=== PATIENT | female | born 1980 | race Caucasian/White ===

== ENCOUNTER 2024-02-22 07:50 | Emergency (ER) | payer OTHER, SELFPAY ==
[2024-02-22 07:57] VITALS: BP 116/84
--- NOTE | 2024-02-22 09:34 | ED.GENMED ---
History of Present Illness
General
Chief Complaint: Musculo-Skeletal Complaint
Source: patient
Exam Limitations: none
Time Seen by Provider: 02/22/24 09:04
Nursing documentation reviewed up to this point in time: agreed with
Travel History
Have you had any contact with someone who has COVID-19?: No
Do you have any symptoms of coronavirus? Fever > 100 degrees, chills, cough, shortness of breath, sore throat, loss of taste or smell, muscle aches, or headache?: No
History of Present Illness
History of Present Illness:
43-year-old female with no medical problems presents for 2 to 3 days of atraumatic right shoulder pain. Patient says that she felt a little bit when she was sitting at her computer 2 days ago but was still able to move it. Yesterday when she woke
up it felt more stiff and painful to move. She was still able to do her activities but was limiting her movement of her right shoulder. She is right-hand dominant. Today when she woke up the pain is more severe and she has very limited painful
range of motion. It is not swollen or red, she has no fever or chills, there is no radiating pain down her arm, there is no numbness tingling or weakness in the arm. She is not having any chest discomfort or shortness of breath. It is not
pleuritic. She has no neck pain. Patient tried applying Salley balm on the shoulder without relief of pain. She has never had any shoulder problems before. She denies repetitive lifting or using weights
Past History
Past History
ED Past Medical History: None
ED Past Surgical History: None
Social History
Tobacco: Non-smoker
Alcohol: None
Drug: None
Personal:
Living: with family
Review of Systems
Review of Systems
Allergies reviewed?: Yes
All Other Systems: Not applicable
Phy Exam
Physical Exam
Physical Exam:
GENERAL: Alert , in no apparent distress, comfortable at rest
HEAD: NCAT
neck: no midline tendneress, no trapezius tenderness, full rom of the neck
CV: regular, no edema
lungs: clear, no resp distress
NEUROLOGICAL: Alert and oriented, no focal neuro deficits, , 5/5 strength, sensation intact,
SKIN: Warm and dry, no redness/warm
MUSCULOSKELETAL: Normal inspection of the right shoulder, no swelling appreciated, patient has no tenderness to the clavicle or scapula but she does have some tenderness to the anterior aspect of her proximal humerus along the humeral head. She has
very limited painful range of motion but is able to touch the opposite shoulder. Most pain comes with abduction and rotation externally. Was unable to perform a drop arm test, patient was too uncomfortable. She has no distal swelling, no
tenderness, normal neurovascular exam
PSYCH: Normal and appropriate interaction.
Course
Orders/Labs/Results
Orders:
Orders
02/22/24 08:00
Shoulder, Right 2 Views [CR Shoulder - Right Min 2 View] Urgent
Comment:
Reason For Exam: pain
02/22/24 09:46
Hydrocodone 5/APAP 325 [[place] 5/325] 1 tablet PO NOW STA
Ibuprofen [Motrin] 600 mg PO NOW STA
Vital Signs
Initial and Last Documented VS:
Initial Vital Signs
Temp Pulse Resp BP Pulse Ox
98.3 F 88 20 116/84 100
02/22/24 07:57 02/22/24 07:57 02/22/24 07:57 02/22/24 07:57 02/22/24 07:57
Last Documented Vital Signs
Temp Pulse Resp BP Pulse Ox
98.3 F 88 20 116/84 100
02/22/24 07:57 02/22/24 07:57 02/22/24 07:57 02/22/24 07:57 02/22/24 07:57
MDM/Problems Addressed
Differential Diagnosis Includes:
bursitis, rottator cuff tendintiis, calcific tendinitis
MDM/Problems Addressed:
43 y/o F R hand dominant
here with atraumatic right shoulder pain x 3 days progressive, limiting her ROM
has not tried any meds
no fever/chills, numbness/tingling/weakness
no neck pain
cnanot think of repetitive lifting injury
examines loike burisitis or calfici tendinitis
no swellign, no redness, able to touch opposite shoulder pain with abduction and extension and rotation
no neck tenderness
nv intact
xray indep reviewed by me no findigns.
ortho f/u
ice/heat
nsaids
1 dose vicodin here
return precautions,.
*Critical Care Note
Total Time (30-74mins, 75-104mins- exclusive of procedures): Not Applicable
ED Attending Note
-
Portions of this chart may have been created with voice recognition software.� Occasional wrong word or��sound alike� substitutions may have occurred due to the inherent limitations of voice recognition software.
Discharge Plan
Departure
Patient Disposition: Home (Routine Discharge)
Date of Disposition: 02/22/24
Time of Disposition: 09:48
Patient with high blood pressure during this ER visit?: No
Condition: Fair
Covid-19: Not Applicable
Discharge Problem:
Acute pain of right shoulder
Instructions: Shoulder Pain (DC)
Prescriptions:
New
naproxen 500 mg tablet
500 mg PO BID 7 Days Qty: 14 0RF
Referrals:
Rupert Blankenship MD [Active] - Follow up in 5-7 days
(ortho
)
Ole Barrett DO [Family Provider] - Follow up in 2-3 days
Stand Alone Forms: Return to Work
Activity Restrictions/Additional Instructions:
We are not entirely sure the cause of your shoulder pain. You could have a bursitis or tendinitis. You should rest, ice and alternate with heat off-and-on, gently stretch a couple times a day, take naproxen 500 mg with food twice a day for 5 to 7
days starting tonight. You can take Tylenol 3 times a day. Follow-up with orthopedics for continued symptoms. You can also apply lidocaine patches when you are not icing it.
Return for fever, redness to the skin, numbness tingling or weakness in the arms or legs or concerns.
Interventions
Interventions:
*Risk Screen - Suicide Last Done: 02/22/24 07:57
*General Assessment Last Done: 02/22/24 07:57
*Neglect/Abuse Screening Last Done: 02/22/24 07:57
ED-Musculoskeletal Assessment Last Done: 02/22/24 09:19
[2024-02-22] MEDS: NORCO 5/325 1 TABLET PO (09:56)
[2024-02-22] MEDS: MOTRIN 600 MG PO (09:56)
== END 2024-02-22 10:08 | disposition home or self-care (01) ==
LOC: EMR 07:50
PROVIDERS: EMERGENCY PHYSICIAN Emergency Medicine; FAMILY PHYSICIAN Family Medicine
DX: M25.511 Pain in right shoulder (principal)
CPT/HCPCS: 99283; 73030

== ENCOUNTER 2024-08-14 22:42 | Observation (INO) | payer OTHER, SELFPAY ==
[2024-08-14] VITALS (7 sets, daily range): BP systolic 101–113; BP diastolic 64–80; BMI 24.3; BMI 23.7
[2024-08-14 17:26] LABS: % Basophils 1.1 % (0-2); % Eosinophils 2.5 % (0-6); % Immature Granulocytes 0.2 % (0-0.5); % Lymphocytes 32.1 % (20.5-51.1); % Monocytes 8.6 % (1.7-9.3); % Neutrophils 55.5 % (42.2-75.2); Absolute Basophils 0.1 10^3/uL (0-0.2); Absolute Eosinophils 0.1 10^3/uL (0-0.7); Absolute Lymphocytes 1.8 10^3/uL (1.2-3.4); Absolute Monocytes 0.5 10^3/uL (0.1-0.6); Absolute Neutrophils 3.2 10^3/uL (1.4-6.5); Hemoglobin 14.1 g/dL (12.0-16.0); Mean Corp Hgb Conc. 35.3 g/dL (33.0-37.0); Mean Corpuscular Hgb 31.8 pg (27.0-31.0); Mean Corpuscular Volume 90.3 fL (81.0-99.0); Mean Platelet Volume 9.6 fL (7.4-10.4); Nucleated Red Blood Cells % 0 %; Platelet Count 194 10^3/uL (130-400); Red Blood Cell Count 4.43 10^6/uL (4.20-5.40); Red Cell Dist. Width 11.7 % (11.5-14.5); White Blood Cell Count 5.7 10^3/uL (4.8-10.8)
[2024-08-14 17:35] LABS: APTT 24.8 Sec (23.4-35.0)
[2024-08-14 18:28] LABS: ALT (SGPT) 23 U/L (0-35); AST (SGOT) 30 U/L (14-36); Albumin 4.6 g/dl (3.5-5.0); Alkaline Phosphatase 49 U/L (38-126); Blood Urea Nitrogen 14 mg/dl (7-17); Calcium 10.1 mg/dl (8.4-10.2); Carbon Dioxide 26 mmol/L (22-30); Chloride 104 mmol/L (98-107); Glucose 124 mg/dl (70-99); Potassium 4.5 mmol/L (3.5-5.1); Sodium 140 mmol/L (135-145); Total Bilirubin 0.5 mg/dl (0.2-1.3); Total Protein 6.9 g/dl (6.3-8.2); eGFR > 60.00
--- NOTE | 2024-08-14 18:50 | ED.GENMED ---
History of Present Illness
<Robert Stanford PA-C - Last Filed: 08/14/24 21:17>
General
Chief Complaint: Dizziness
Source: patient
Exam Limitations: none
Time Seen by Provider: 08/14/24 18:03
History of Present Illness
History of Present Illness:
44-year-old female presents with 3 to 4 days worth of pressure and in the front of her head that radiates in a bandlike distribution with associated dizziness and confusion. She states she has been mixing her words up at times and she has been
stumbling. She describes at times the dizziness feels lightheaded however she also feels a woozy sensation if she turns her head or rolls over in bed. No recent fever congestion runny nose. Denies any unilateral numbness or weakness. No
abdominal pain chest pain of breath. Of note, patient started esterase 2 weeks ago. She states she tried to get . She recently increased her dose about 2 days prior to the onset of the symptoms currently. She stopped the medicine then 3
days ago however her symptoms have not improved.
Past History
<Robert Stanford PA-C - Last Filed: 08/14/24 21:17>
Past History
ED Past Medical History: None
ED Past Surgical History: None
Social History
Tobacco: Non-smoker
Alcohol: None
Drug: None
Personal:
Living: with family
Phy Exam
<Robert Stanford PA-C - Last Filed: 08/14/24 21:17>
Physical Exam
Physical Exam:
General: Well-appearing female no acute respiratory distress HEENT: Normocephalic atraumatic pupils equal round reactive to light no nystagmus TMs normal mucosa moist neck is supple
Heart: Regular rate and rhythm no murmurs lungs: Clear no wheeze
Neurologic exam: Alert and oriented no droop finger-nose intact [place] does reproduce dizziness more so to the right than the left there is no slurred speech no ataxia noted no dysarthria
Skin is warm no rash
Extremities: No cyanosis or edema
Course
<Robert Stanford PA-C - Last Filed: 08/14/24 21:17>
Orders/Labs/Results
Orders:
Orders
08/14/24 14:15
Monotest Urgent
Comment: ADD ON
08/14/24 17:07
CT Head W/o Iv Contrast Urgent
Comment:
Reason For Exam: speech issues
08/14/24 17:15
Complete Blood Count/With Diff Urgent
Comprehensive Metabolic Panel Urgent
PTT Urgent
08/14/24 19:29
CT Angio Head W/Wo Iv Contrast [CT Head Angio W/wo Iv Contrast] Urgent
Comment:
Reason For Exam: headache, dizzy, please do venogram
08/14/24 22:00
Flush (0.9% Sodium Chloride) [Flush (Nss)] See Dose Instructions IV PER PROTOCOL
Abnormal Lab Results
08/14/24
17:15
MCH 31.8 H pg
(27.0-31.0)
Glucose 124 H mg/dl
(70-99)
08/14/24 17:15
08/14/24 17:15
Vital Signs
Initial and Last Documented VS:
Initial Vital Signs
Temp Pulse Resp BP Pulse Ox
98.6 F 82 18 112/80 99
08/14/24 17:01 08/14/24 17:01 08/14/24 17:01 08/14/24 17:01 08/14/24 17:01
Last Documented Vital Signs
Temp Pulse Resp BP Pulse Ox
98.7 F 57 20 109/70 97
08/14/24 21:25 08/14/24 21:45 08/14/24 21:45 08/14/24 21:25 08/14/24 21:45
<Joseph Tsang MD - Last Filed: 08/14/24 21:58>
Orders/Labs/Results
Orders:
Orders
08/14/24 14:15
Monotest Urgent
Comment: ADD ON
08/14/24 17:07
CT Head W/o Iv Contrast Urgent
Comment:
Reason For Exam: speech issues
08/14/24 17:15
Complete Blood Count/With Diff Urgent
Comprehensive Metabolic Panel Urgent
PTT Urgent
08/14/24 19:29
CT Angio Head W/Wo Iv Contrast [CT Head Angio W/wo Iv Contrast] Urgent
Comment:
Reason For Exam: headache, dizzy, please do venogram
08/14/24 22:00
Flush (0.9% Sodium Chloride) [Flush (Nss)] See Dose Instructions IV PER PROTOCOL
Abnormal Lab Results
08/14/24
17:15
MCH 31.8 H pg
(27.0-31.0)
Glucose 124 H mg/dl
(70-99)
08/14/24 17:15
08/14/24 17:15
Vital Signs
Initial and Last Documented VS:
Initial Vital Signs
Temp Pulse Resp BP Pulse Ox
98.6 F 82 18 112/80 99
08/14/24 17:01 08/14/24 17:01 08/14/24 17:01 08/14/24 17:01 08/14/24 17:01
Last Documented Vital Signs
Temp Pulse Resp BP Pulse Ox
98.7 F 57 20 109/70 97
08/14/24 21:25 08/14/24 21:45 08/14/24 21:45 08/14/24 21:25 08/14/24 21:45
<Robert Stanford PA-C - Last Filed: 08/14/24 21:17>
MDM/Problems Addressed
Differential Diagnosis Includes:
Dizziness confusion head pressure. This started after recent initiation of esterase. No objective findings on exam to suggest unilateral deficit or CVA. Patient does seem to have some qualities of vertigo with [place] more so to the right.
Question viral illness or electrolyte abnormality. Offered COVID test however patient declined at the moment. Labs pending CT pending
<Robert Stanford PA-C - Last Filed: 08/14/24 21:17>
*Critical Care Note
Total Time (30-74mins, 75-104mins- exclusive of procedures): Not Applicable
<Robert Stanford PA-C - Last Filed: 08/14/24 21:17>
Update Note
Update Note:
Initial CT negative. Discussed with emergency room attending saw the patient as well and spoke with neurology. Neurology recommended CTV of the head this was performed and was negative. Patient still not back to baseline does not feel herself
having trouble with words and balance. There was recent increase dose of estrogen. Given this concern for possible TIA versus CVA. Will admit to hospital.
ED Attending Note
<Robert Stanford PA-C - Last Filed: 08/14/24 21:17>
-
Portions of this chart may have been created with voice recognition software.� Occasional wrong word or��sound alike� substitutions may have occurred due to the inherent limitations of voice recognition software.
<Joseph Tsang MD - Last Filed: 08/14/24 21:58>
ED Attending Note
Patient seen and examined by attending physician: Yes
I performed the substantive portion of visit, reviewed & personally made and approve the management plan that is documented in note by myself or NAVIN.: Yes
ED Attending Note:
44-year-old female higher doses of estrogen for issues. About 3 days ago patient started noticing neurologic symptoms including some difficulty with her speech. Missing words. Cognitive issues. Slight balance issues. She lowered the
dose of estrogen but symptoms persisted.
On exam patient is nontoxic in no distress. Pupils are equal reactive to light. Extraocular muscles intact. Speech normal. Does catch on words once in a while. No weakness or drift.
Concern for thrombus issues with the estrogen. No other risk factors for stroke. No neck pain or concern for dissection. Discussed with neurology. CTV.
Discharge Plan
Departure
Patient Disposition: Admit
Date of Disposition: 08/14/24
Time of Disposition: 21:17
Admit to: Telemetry
Presentation/result/management discussed w/ accepting MD/DO: Hospitalist
Discharge Problem:
Dizziness
Prescriptions:
No Action
Theragen Tablet
1 tab PO DAILY
Referrals:
Ole Barrett DO [Family Provider] -
Interventions
Interventions:
*Risk Screen - Suicide Last Done: 08/14/24 16:58
*General Assessment Last Done: 08/14/24 17:01
*Neglect/Abuse Screening Last Done: 08/14/24 17:01
ED- Fall Risk Assessment Last Done: 08/14/24 19:25
*ED COVID-19 Vaccine History Last Done: 08/14/24 19:24
ED- Neurological Assessment Last Done: 08/14/24 21:10
ED Swallowing Screen Last Done: 08/14/24 21:10
Discharge Date and Time
Print Language: CHILEAN
[2024-08-14 19:22] LABS: Monotest Negative (Negative)
--- NOTE | 2024-08-14 22:07 | HPS.HSE ---
Family Physician
-
Family Physician: Ole Barrett
Chief Complaint
-
Dizziness, head pressure
History of Present Illness
This is a 44-year-old female with no known significant past medical history presenting to the emergency department with approximately 5 to 6 days of head pressure and dizziness.
Patient reported that she started taking estrogen treatment for fertility and was on increased dose on Saturday when she started having symptoms of head pressure, speech impediment, disequilibrium. She denies having she had sharp pain in her head.
She denies any blurry vision or double vision. She denies any neck pain fevers or chills. She denies any nausea or vomiting. Patient denies any numbness tingling or weakness. She has not had any falls. She reports that she feels dizzy when she
turns around but denies vertigo. She feels somewhat lightheaded. She reports intermittent episodes of mild aphasia. She sometimes admits pronounces words or interchanges the words that she intends to use. Patient denies any other medication
changes. She stopped taking the estradiol supplements about 4 days ago but symptoms persisted. Patient reports family history with her mother who is in the late 70s with CVA but otherwise negative. She has no recent travels or sick contacts. She
denies any smoking or tobacco use.
In the emergency manage she was hemodynamically stable with a blood pressure in the 110 systolic. Oxygen saturation was normal. She had a CT of the head and CT angio which showed no acute intracranial processes specifically no aneurysm bleeding
strokes or mass. She also has no thrombosis of the dural veins. CBC was unremarkable. Chemistries were all within normal limits.
Medical History
Past Medical History
Past Medical History: Reports None
Past Surgical History: Reports None
Social History
Tobacco: Non-smoker
Alcohol: None
Drug: None
Personal:
Living: With Family
Employment: Employed
Family History
Family History: Not pertinent
Allergies / Home Medications
Allergies reflects when Allergies were last updated in [employer]
Home Medications with original date entered in [employer]
Allergy/Medication List:
Allergies
Allergy/AdvReac Type Severity Reaction Status Date / Time
No Known Allergies Allergy Unverified 02/22/24 07:57
Home Medications
therapeutic multivitamin 1 tab PO DAILY 08/14/24
Review of Systems
-
History Source: Patient
Constitutional: Reports No Symptoms
EENT: Reports No Symptoms
Respiratory: Reports No Symptoms
Cardiac: Reports No Symptoms
Abdomen/GI: Reports No Symptoms
: Reports No Symptoms
Musculoskeletal: Reports No Symptoms
Skin: Reports No Symptoms
Neurological: Reports Dizzy and Headache
Endocrine: Reports No Symptoms
Hematologic/Lymphatic: Reports No Symptoms
Psych: Reports No Symptoms
Physical Exam
Vital Signs
Vital Signs
Temp Pulse Resp BP Pulse Ox
98.7 F 60 20 102/69 98
08/14/24 21:25 08/14/24 22:00 08/14/24 22:00 08/14/24 22:00 08/14/24 22:00
Physical Exam
General: Well Developed, Well Nourished, No Apparent Distress and Comfortable
HEENT: NormoCephalic, Anicteric, Moist mucous membranes and Atraumatic
Respiratory: Clear
Cardiac: S1/S2 and Regular Rhythm
Breast: Deferred by me
GI: Soft, Non Tender, Non Distended and Normal Bowel Sounds
Rectal: Deferred by Provider
Genito-urinary: Deferred by me
Musculoskeletal: No Clubbing, No Cyanosis and No Edema
Skin: Warm
Neuro: AO x 3
Hematologic/Lymphatic: Lymphadenopathy
Psych: Calm
Laboratory Results
-
08/14/24 17:15
08/14/24 17:15
Laboratory Results
APTT 24.8 Sec (23.4-35.0) 08/14/24 17:15
Total Bilirubin 0.5 mg/dl (0.2-1.3) 08/14/24 17:15
AST 30 U/L (14-36) 08/14/24 17:15
ALT 23 U/L (0-35) 08/14/24 17:15
Alkaline Phosphatase 49 U/L (38-126) 08/14/24 17:15
Data Reviewed
-
CT Scan: Report Reviewed by me
Lab Data: Labs Reviewed by me
Impression/Plan
-
IMPRESSION:
PLAN:
1. Headache - Mild headache described more like head pressure in setting of fertility treatment with estrace. Symptoms include dizziness/lightheadedness without vertigo, disequilibrium, clouded sensorium and mild speech alterations without focal
neurological deficits. Ongoing x [address]/CTA and no evidence of dural vein thrombosis. Less likely ischemia or seizure. Possibly elevated intracranial pressure, but without funduscopic exam. No history of migraines and denies any
sharp or throbbing pain. No signs of acute infection.
- admit to med/surg
- mri in am
- neurocheck q 6
- no indication of aspirin
- neuro consultation. Discussed possible LP but currently deferred.
DVT PPX - lovenox sq
Code Status - Full
[2024-08-15 07:15] VITALS: BP 92/59
--- NOTE | 2024-08-15 08:42 | CON.NEURO ---
Neuro Assessment/Plan
Assessment
Abrupt onset headache and dizziness
Likely reaction to estrogen, no evidence of central venous thrombosis
Plan
MRI of brain as planned
Prochlorperazine as needed for head pressure
Physical therapy
Would not return to estrogen until symptom-free
Will follow pending results.
Consultation
Order
Date of Consultation: 08/15/24
Requesting Provider: Emergency department provider/hospitalist
Reason for Consult: Dizziness
Subjective/Objective
Subjective Data
Date of Service: August 15, 2024
Right-handed
August 09, 2024 started head pressure with other symptoms after few hours of increase of estrogen (started 2 weeks ago as infertility therapy). The additional symptoms patient was experiencing included a sense of dizziness, confusion, word
finding difficulty. Patient reports that she began having insomnia with the use of the estrogen.
Pressure is described as located across head and dizziness, increasing 3 days ago progressively. Discontinued estrogen since worsening of symptoms 3 days ago.
Aphasia started at same time with memory issues. Ended up placing bra on top of bra unintentionally as an example of confusion the patient experienced.
She has continued to have head pressure since onset, frontal in location with and intensity 5/10, max 6/10.
Doesn't include: weakness, photophobia, phonophobia, nausea, emesis
Prior episodes: none
Usual head pressure: with fever only
Worse head pressure with movement.
Objective Data
Vital Signs
Temp Pulse Resp BP Pulse Ox
36.6 C 60 16 113/64 100
08/14/24 23:44 08/14/24 23:44 08/14/24 23:44 08/14/24 23:44 08/14/24 23:44
Lab Results
08/14/24 17:15
08/14/24 17:15
APTT 24.8 Sec (23.4-35.0) 08/14/24 17:15
Sodium 140 mmol/L (135-145) 08/14/24 17:15
Potassium 4.5 mmol/L (3.5-5.1) 08/14/24 17:15
BUN 14 mg/dl (7-17) 08/14/24 17:15
Glucose 124 mg/dl (70-99) H 08/14/24 17:15
Calcium 10.1 mg/dl (8.4-10.2) 08/14/24 17:15
Patient Allergies
No Known Allergies Allergy (Unverified 02/22/24 07:57)
Review of Systems
-
History Source: Patient
All other systems: Reviewed and negative
EENT: Negative Blurry Vision, Hearing Loss or Swallowing Difficulty
Respiratory: Negative Trouble Breathing
Cardiac: Negative Chest Pain
Abdomen/GI: Negative Incontinence of Stool
Genitourinary: Negative Incontinence
Musculoskeletal: Negative Back Pain or Neck Pain
Neuro: Dizzy and Headache
Physical Exam
-
General: No Apparent Distress and Appears Stated Age
Eyes: OU Absent Papilledema, Round OU, [place] Conjunctivae and No Ptosis
HEENT: Anicteric and Moist Mucous Membranes
Neck: Full Range of Motion
Respiratory: No Dyspnea
Cardiac: No JVD
GI: Non-distended
Skin: Unremarkable
Extremities: No Clubbing, No Cyanosis and No Edema
Psych: Intact Judgement/Insight
Extended Neurological Exam
Mood & Affect: Mood Unremarkable; Negative Affect Unremarkable (Somatic)
Attention Span & Concentration: Awake, Alert, Interactive and No Difficulty with 2 Step Request
Memory: Unremarkable
Tremor: Hand Tremor Absent and Head Tremor Absent
Speech: Quality Unremarkable and Quantity Unremarkable
Cranial Nerve II: Left Eye: Pupillary Reactivity Unremarkable, Pupillary Size Unremarkable and Visual Moyer Intact
Cranial Nerve II: Right Eye: Pupillary Reactivity Unremarkable, Pupillary Size Unremarkable and Visual Moyer Intact
Cranial Nerves III, IV, : Extraocular Movement: Extraocular Movement Full in all Directions
Cranial Nerve VII: Facial Symmetry: Normal Facial Symmetry
Cranial Nerve VIII: Hearing: Unremarkable Hearing to Normal Conversational Volume
Cranial Nerves IX, X: Palate Movement: Palate Elevation Symmetric
Cranial Nerve XI: Shoulder Shrug: Unremarkable
Cranial Nerve XII: Tongue Protusion: Midline
Muscle Strength, Overall: Full Throughout
Muscle Bulk & Tone: Bulk Unremarkable and Tone Unremarkable
Pronator Drift: No Drift in Upper Extremities and No Drift in Lower Extremities
Deep Tendon Reflexes: Unremarkable Throughout
Touch Sensation: Unremarkable
Coordination: [id number] Testing Unremarkable
Babinski Sign: Absent Bilaterally
Data Reviewed
-
CT-A: Report Reviewed (Negative CT venogram)
CT Head: Report Reviewed
Labs: Report Reviewed
Reviewed with: Physician and Patient
Old Records: Summarized
Medications
-
Active Medications
Generic Name Dose Route Start Last Admin
Trade Name Freq PRN Reason Stop Dose Admin
Acetaminophen 650 mg 08/14/24 23:47
Acetaminophen 325 Mg Tablet PO 09/11/24 23:46
Q4HPRN PRN
mild pain/BRANCH/temp> 100.4F
Bisacodyl 10 mg 08/14/24 23:47
Bisacodyl 10 Mg Rectal Suppository RECTAL 09/11/24 23:46
[id number] PRN
constipation
Enoxaparin Sodium 40 mg 08/15/24 18:00
Enoxaparin Sodium 40 Mg/0.4 Ml Syringe SC 09/12/24 17:59
QPM RAYMON
Polyethylene Glycol 17 grams 08/14/24 23:47
Polyethylene Glycol Powder 17 Grams Packet PO 09/11/24 23:46
DAILYPRN PRN
constipation
Senna/Docusate Sodium 1 tablet 08/14/24 23:47
Docusate W/Senna (Kimberly-Colace) Tablet PO 09/11/24 23:46
BIDPRN PRN
constipation
Sodium Chloride 0 flush 08/14/24 22:00
Sodium Chloride 0.9% (Flush) Syringe IV 09/11/24 21:59
PER PROTOCOL RAYMON
Home Medications
�Medication �Instructions �Recorded
therapeutic multivitamin 1 tab PO DAILY 08/14/24
Past History
Past History
ED Past Medical History: Other (Infertility)
ED Past Surgical History: None
Social History
Tobacco: Non-smoker
Alcohol: None
Drug: None
Personal:
Living: with family
Family History
Family History: Other (Reviewed and noncontributory)
--- NOTE | 2024-08-15 14:59 | W.PN.HOSP.TC ---
Today's Communication/Plan
-
Discharge today
Assessment / Plan
Assessment / Plan
Physical Exam
General: Well Developed, Well Nourished, No Apparent Distress and Comfortable
HEENT: Normocephalic
Respiratory: Clear to Auscultation Bilaterally
Cardiac: S1/S2 and Regular Rhythm
GI: Soft, Non Tender, Non Distended and Normal Bowel Sounds
Musculoskeletal: No Cyanosis and No Edema
Skin: Warm
Neuro: AAO x 3. Cranial Nerves 2 through 12, and strength and sensation all grossly intact bilaterally.
Psych: Calm
Assessment/Plan
Abrupt onset headache and dizziness - likely reaction to estrogen, no evidence of central venous thrombosis
-CT head imaging with some volume loss, but mainly unremarkable
- MRI brain without any acute abnormalities
- Neurology consulted, recommendations appreciated: Dr. Anton of neurology mentioned via [place] Text conversation today that patient can be discharged today with Prochlorperazine 10 mg Q6 PRN migraine headache, and that patient does not need to have
any driving restrictions on discharge
DVT Prophylaxis: Lovenox subq
Code Status: Full Code
More than 30 minutes spent in discharge including
Final examination of the patient
Summarizing hospital stay
Instructions for continuing care to all relevant caregivers
Preparation of discharge records, prescriptions, and referral forms
Total time spent (in minutes): 35
Anticipated Discharge: Today
Subjective/Interval History
-
Date of Service: August 15, 2024
Patient was seen and examined. She reported feeling okay sitting in the bed, some dizziness with moving around.
Objective Data
-
Vital Signs:
Vital Signs
Temp Pulse Resp BP Pulse Ox
97.8 F 67 16 92/59 97
08/15/24 07:15 08/15/24 07:15 08/15/24 07:15 08/15/24 07:15 08/15/24 07:15
I&O
08/14/24 08/15/24 08/16/24
06:59 06:59 06:59
Intake Total 480 / 480
Balance 480 / 480
[2024-08-15 15:25] VITALS: BP 109/73
--- NOTE | 2024-08-15 15:32 | W.DCSUMMARY ---
Discharge Summary
Discharge Data
Date of Admission: 08/14/24
Date of Discharge: 08/15/24
Total time spent discharging patient (in min): 35
-
Pending Results: No
Hospital Course
44 y/o female who presented with about a 1 week history of headache and dizziness. Patient was recently started on estrogen-containing medication outpatient but it was discontinued due to her recent symptoms. Neurology was consulted and they
recommended Prochlorperazine as needed for head pressure. MRI Brain showed no acute intracranial abnormality or any significant abnormality.
Discharge Plan
-
Patient Disposition: Home (Routine Discharge)
Discharge Diagnosis/Procedures: Abrupt onset headache and dizziness - likely reaction to estrogen, no evidence of central venous thrombosis
Mild diffuse cerebral volume loss on CT Imaging
Condition: Fair
Diet: As tolerated
Activity Restrictions/Additional Instructions:
Talk with outpatient neurology office and your outpatient physicians regarding whether or not you can resume your estrogen medication.
Instructions: Prochlorperazine
Referrals:
Davida Pillai CRNP [Specified Professional Personl] - in one to two weeks (Hospital follow-up for dizziness and cerebral volume loss)
Ole Barrett DO [Family Provider] - in less than 1 week
Prescriptions:
New
prochlorperazine maleate [Compazine] 10 mg tablet
10 mg PO Q6H PRN (Reason: migraine headache) Qty: 14 0RF
Continued
therapeutic multivitamin Tablet
1 tab PO DAILY
Discharge Orders:
Discharge Patient (As Directed); Ordered 08/15/24
Ordered By: Rolando Pual
Discharge Date and Time
Discharge Date/Time: 08/15/24 16:00
Print Language: ROMANIAN
--- NOTE | 2024-08-15 15:45 | CM ---
business unit manager reviewed patient's chart and met with patient and patient was admitted under OBS, OBS provided to patient, signed and placed on chart, patient lives with spouse and family in a multilevel home is independent with adl's and ambulation,
no dme, patient drives.
Pharmacy: [facility]
PCP: Ole Barrett.
Plan; Home no needs.
== END 2024-08-15 16:00 | disposition home or self-care (01) ==
LOC: 4 WEST ACU 22:42
PROVIDERS: Emergency Medicine; ADMITTING PHYSICIAN Internal Medicine; ATTENDING PHYSICIAN Hospitalist; CONSULT PHYSICIAN Psychiatry & Neurology Neurology; EMERGENCY PHYSICIAN Emergency Medicine; FAMILY PHYSICIAN Family Medicine
DX: R51.9 Headache, unspecified (principal); R42 Dizziness and giddiness; R41.0 Disorientation, unspecified; R47.9 Unspecified speech disturbances; R47.01 Aphasia; N97.9 Female infertility, unspecified; R50.9 Fever, unspecified; Z82.3 Family history of stroke
CPT/HCPCS: 70450; 70496; 70551; 80053; 85025; 85730; 86308; 99285; G0378; Q9967